=== PATIENT | female | born 1985 | race Caucasian/White ===

== ENCOUNTER → 2024-02-19 11:10 | Outpatient (REF) | payer BC, SELFPAY | LOC: RAD 11:10 | PROVIDERS: ATTENDING PHYSICIAN Internal Medicine Rheumatology; FAMILY PHYSICIAN Family Medicine | DX: M06.049 Rheumatoid arthritis without rheumatoid factor, unspecified hand (principal); M54.2 Cervicalgia | CPT/HCPCS: 72052 ==

== ENCOUNTER 2024-04-09 06:58 | Emergency (ER) | payer BC, SELFPAY ==
[2024-04-09 07:00] VITALS: BP 140/91
--- NOTE | 2024-04-09 07:53 | ED.GENMED ---
History of Present Illness
General
Chief Complaint: Eye Problems
Source: patient
Time Seen by Provider: 04/09/24 07:33
Travel History
Have you had any contact with someone who has COVID-19?: No
Do you have any symptoms of coronavirus? Fever > 100 degrees, chills, cough, shortness of breath, sore throat, loss of taste or smell, muscle aches, or headache?: No
History of Present Illness
History of Present Illness:
38-year-old female presenting the emergency department for evaluation of left eye redness, drainage and discomfort which started 2 days ago which she thought was possible allergies, yesterday morning had a little bit of discharge so her primary care
recommended erythromycin ointment which patient already had at home but states this was a prescription but that if symptoms worsen that she should come to the ER to be further evaluated. This morning patient states her left eye was closed
shut due to the discharge and edema and had some more discomfort which prompted her to come to the emergency department. She does not wear glasses or contact lenses, denies any chemical exposures, recent illnesses, fevers or infectious symptoms.
No other concerns.
Past History
Past History
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 Had hip and knee surgeries complete at [facility]) and Tonsilectomy
Social History
Tobacco: Non-smoker
Alcohol: Occasional
Drug: None
Personal:
Living: with family
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
Family History
Family History: CAD
Review of Systems
Review of Systems
All Other Systems: ROS reviewed and negative except as documented in HPI and ROS
Phy Exam
Physical Exam
Physical Exam:
GENERAL: Alert , in no apparent distress
EYE: Left eye: Conjunctive a moderately injected with discharge surrounding the upper and lower lids. There is no periorbital edema or erythema. No proptosis. Extraocular movements intact. Right eye is within normal limits
Fluorescein stain: Left eye no uptake
Visual acuity: Left eye: 20/25, right eye 20/25, both eyes: 20/25
Head: Normocephalic atraumatic
NECK: Supple,
ENT: mmm.
LUNGS: no acute respiratory distress
NEUROLOGICAL: Alert and oriented
SKIN: Warm and dry, skin intact.
MUSCULOSKELETAL: well perfused.
PSYCH: Normal and appropriate interaction.
Scores
Heart Failure Risk
Heart Failure Risk Score: Not Applicable
Heart Score for Chest Pain Patients
STEMI patient?: Not applicable
Withdrawal Assessment of Alcohol
Withdrawal Assessment Completed?: Not applicable
Course
Orders/Labs/Results
Orders:
Orders
04/09/24 07:55
Tetracaine HCl [Tetracaine 0.5% Ophthalmic Solution] 1 drop .ROUTE .[facility]
Vital Signs
Initial and Last Documented VS:
Initial Vital Signs
Temp Pulse Resp BP Pulse Ox
98.3 F 66 16 140/91 100
04/09/24 07:00 04/09/24 07:00 04/09/24 07:00 04/09/24 07:00 04/09/24 07:00
Last Documented Vital Signs
Temp Pulse Resp BP Pulse Ox
98.3 F 66 16 140/91 100
04/09/24 07:00 04/09/24 07:00 04/09/24 07:00 04/09/24 07:00 04/09/24 07:00
MDM/Problems Addressed
Differential Diagnosis Includes:
Conjunctivitis, corneal abrasion, foreign body, no concern for glaucoma
MDM/Problems Addressed:
38-year-old female presenting emergency department for evaluation of 2 days of left eye irritation, erythema and discharge. Exam seems to be most consistent with a conjunctivitis. I do suspect viral conjunctivitis to be most likely however given
discharge will treat with drops. Advise close follow-up with primary care provider. Aware of return precautions but otherwise stable for her at home.
*Pulse Oximetry
Patient hypoxic: no
*Critical Care Note
Total Time (30-74mins, 75-104mins- exclusive of procedures): Not Applicable
ED Attending Note
-
Portions of this chart may have been created with voice recognition software.� Occasional wrong word or��sound alike� substitutions may have occurred due to the inherent limitations of voice recognition software.
Discharge Plan
Departure
Patient Disposition: Home (Routine Discharge)
Date of Disposition: 04/09/24
Time of Disposition: 07:53
Patient with high blood pressure during this ER visit?: Yes
Discharge Problem:
Acute conjunctivitis, left eye
Instructions: Conjunctivitis (Pinkeye) (DC)
Prescriptions:
New
moxifloxacin [Vigamox] 0.5 % drops
1 drp ophthalmic (eye) TID 5 Days Qty: 3 0RF
No Action
PNV cmb#95-ferrous fumarate-FA [ Multivitamins] 1 EACH tablet
1 ea PO DAILY
Entyvio: Addvantage Bag
300 mg INFUSION .[id number]
Patient Comments:
infusion q 4 weeks
Saccharomyces boulardii [Florastor] 250 MG capsule
250 mg PO DAILY
pantoprazole 40 MG tablet,delayed release (DR/EC)
40 mg PO DAILY
Referrals:
Doc Montgomery DO [Family Provider] -
Interventions
Interventions:
*ED COVID-19 Vaccine History Last Done: 04/09/24 07:00
Discharge Date and Time
Print Language: BURKINAN
== END 2024-04-09 08:10 | disposition home or self-care (01) ==
LOC: EMR 06:58
PROVIDERS: EMERGENCY PHYSICIAN Emergency Medicine; FAMILY PHYSICIAN Family Medicine
DX: H10.32 Unspecified acute conjunctivitis, left eye (principal); K51.90 Ulcerative colitis, unspecified, without complications; Z88.6 Allergy status to analgesic agent
CPT/HCPCS: 99283

== ENCOUNTER → 2024-05-10 18:32 | Outpatient (REF) | payer BC, SELFPAY | LOC: RAD 18:32 | PROVIDERS: ATTENDING PHYSICIAN Family Medicine | DX: M54.50 Low back pain, unspecified (principal) | CPT/HCPCS: 72100; 73502 ==

== ENCOUNTER 2024-09-04 06:26 | Day surgery (SDC) | payer BC, SELFPAY | END 2024-09-04 10:14 | disposition home or self-care (01) | LOC: GI 06:26 | PROVIDERS: ATTENDING PHYSICIAN Internal Medicine; FAMILY PHYSICIAN Family Medicine | DX: Z12.11 Encounter for screening for malignant neoplasm of colon (principal); K51.00 Ulcerative (chronic) pancolitis without complications; K63.5 Polyp of colon | CPT/HCPCS: 45380; 88305 ==

== ENCOUNTER 2024-11-18 14:19 | Emergency (ER) | payer BC, SELFPAY ==
[2024-11-18 14:19] VITALS: BMI 27.8
[2024-11-18 14:22] VITALS: BP 144/82
[2024-11-18 14:51] LABS: % Basophils 0.6 % (0-2); % Eosinophils 0.6 % (0-6); % Immature Granulocytes 0.2 % (0-0.5); % Monocytes 8.6 % (1.7-9.3); Absolute Lymphocytes 0.3 10^3/uL (1.2-3.4); Absolute Monocytes 0.4 10^3/uL (0.1-0.6); Absolute Neutrophils 4.1 10^3/uL (1.4-6.5); Hematocrit 38.5 % (37.0-47.0); Hemoglobin 12.8 g/dL (12.0-16.0); Mean Corp Hgb Conc. 33.2 g/dL (33.0-37.0); Mean Corpuscular Hgb 29.9 pg (27.0-31.0); Mean Platelet Volume 9.9 fL (7.4-10.4); Nucleated Red Blood Cells % 0 %; Platelet Count 155 10^3/uL (130-400); Red Blood Cell Count 4.28 10^6/uL (4.20-5.40); White Blood Cell Count 4.9 10^3/uL (4.8-10.8)
[2024-11-18 15:05] LABS: ALT (SGPT) 27 U/L (0-35); AST (SGOT) 29 U/L (14-36); Albumin 4.3 g/dl (3.5-5.0); Alkaline Phosphatase 79 U/L (38-126); Blood Urea Nitrogen 8 mg/dl (7-17); Calcium 8.6 mg/dl (8.4-10.2); Carbon Dioxide 26 mmol/L (22-30); Chloride 97 mmol/L (98-107); Glucose 97 mg/dl (70-99); Potassium 3.9 mmol/L (3.5-5.1); Sodium 133 mmol/L (135-145); Total Bilirubin 0.3 mg/dl (0.2-1.3); Total Protein 6.7 g/dl (6.3-8.2); eGFR > 60.00
[2024-11-18 15:16] LABS: Troponin I < 0.012 ng/ml
[2024-11-18 15:57] VITALS: BP 114/74
[2024-11-18 16:00] VITALS: BP 112/73
--- NOTE | 2024-11-18 16:28 | ED.GENMED ---
History of Present Illness
General
Chief Complaint: Breathing Problem
Source: patient
Exam Limitations: none
Time Seen by Provider: 11/18/24 15:40
Nursing documentation reviewed up to this point in time: agreed with
History of Present Illness
History of Present Illness:
39-year-old female presenting to the emergency department today with concerns of cough congestion over the past 7 days. Initially had some mild upper respiratory symptoms over the past but over the past 24 hours or so has noticed fever some
shortness of breath and chest achiness. She is concerned potential pneumonia. She does have a history of ulcerative colitis does take immunosuppressive medication.
Past History
Past History
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 Had hip and knee surgeries complete at [facility]) and Tonsilectomy
Social History
Tobacco: Non-smoker
Alcohol: Occasional
Drug: None
Personal:
Living: with family
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
Family History
Family History: CAD
Review of Systems
Review of Systems
Allergies reviewed?: Yes
All Other Systems: ROS reviewed and negative except as documented in HPI and ROS
Phy Exam
Physical Exam
Physical Exam:
GENERAL: Alert , in no apparent distress
EYE: pupils equal and reactive
NECK: Supple, no significant adenopathy.
ENT: o/p clr, mmm.
CARDIAC: Regular rate and rhythm .
LUNGS: Rhonchi to the right lower lung. Otherwise clear lungs
ABDOMEN: Soft, without focal tenderness, no r/g, no cvat
NEUROLOGICAL: Alert and oriented, no focal neuro deficits
SKIN: Warm and dry, skin intact.
MUSCULOSKELETAL: No edema, well perfused.
PSYCH: Normal and appropriate interaction.
Course
Orders/Labs/Results
Orders:
Orders
11/18/24 14:26
Electrocardiogram (*1) Urgent
Reason for Study: Other
Other Reason for Exam: Respiratory Distress
EKG- Treatment ONCE
CR Chest - 2 Views Urgent
Comment:
Reason For Exam: respiratory distress
11/18/24 14:44
Complete Blood Count/With Diff Urgent
Comprehensive Metabolic Panel Urgent
Troponin I Urgent
11/18/24 17:33
Amoxicillin [Amoxil] 1,000 mg PO NOW STA
Azithromycin [Zithromax] 500 mg PO NOW STA
Abnormal Lab Results
11/18/24
14:44
Absolute Lymphs (auto) 0.3 L 10^3/uL
(1.2-3.4)
Neutrophils % 83.0 H %
(42.2-75.2)
Lymphocytes % 7.0 L %
(20.5-51.1)
Sodium 133 L mmol/L
(135-145)
Chloride 97 L mmol/L
(98-107)
11/18/24 14:44
11/18/24 14:44
Vital Signs
Initial and Last Documented VS:
Initial Vital Signs
Temp Pulse Resp BP Pulse Ox
99.1 F 90 16 144/82 100
11/18/24 14:22 11/18/24 14:22 11/18/24 14:22 11/18/24 14:22 11/18/24 14:22
Last Documented Vital Signs
Temp Pulse Resp BP Pulse Ox
99.8 F 83 17 144/82 99
11/18/24 15:58 11/18/24 15:58 11/18/24 15:58 11/18/24 14:22 11/18/24 15:58
MDM/Problems Addressed
MDM/Problems Addressed:
39-year-old female presenting to the emergency department today with concerns of initial upper respiratory symptoms over the past week but over the past 24 hours shortness of breath and chest pain with potential fever. Does not history of
immunosuppression due to medications for ulcerative colitis. Patient does have rhonchi to the right lower lung field. X-ray did not show any obvious pneumonias. It is possible patient has a very early pneumonia considering the lung findings.
Risk and benefit of starting antibiotic in the setting was discussed with the patient. She claims that considering she is immunosuppressed and has a fever at day 7 of a URI the possibility of a developing pneumonia is increasingly concerning.
Considering this we started antibiotics with recommendations for close outpatient follow-up return precautions were given.
*Critical Care Note
Total Time (30-74mins, 75-104mins- exclusive of procedures): Not Applicable
ED Attending Note
-
Portions of this chart may have been created with voice recognition software.� Occasional wrong word or��sound alike� substitutions may have occurred due to the inherent limitations of voice recognition software.
Discharge Plan
Departure
Patient Disposition: Home (Routine Discharge)
Date of Disposition: 11/18/24
Time of Disposition: 17:36
Patient with high blood pressure during this ER visit?: No
Condition: Good
Covid-19: Not Applicable
Discharge Problem:
Pneumonia
Instructions: Pneumonia in adults
Prescriptions:
New
amoxicillin 500 mg tablet
1,000 mg PO TID 7 Days Qty: 42 0RF
azithromycin 500 mg tablet
500 mg PO DAILY 2 Days Qty: 2 0RF
No Action
PNV cmb#95-ferrous fumarate-FA [ Multivitamins] 1 EACH tablet
1 ea PO DAILY
Entyvio: Addvantage Bag
300 mg INFUSION .[id number]
Patient Comments:
infusion q 4 weeks
Saccharomyces boulardii [Florastor] 250 MG capsule
250 mg PO DAILY
pantoprazole 40 MG tablet,delayed release (/EC)
40 mg PO DAILY
moxifloxacin [Vigamox] 0.5 % drops
1 drp ophthalmic (eye) TID 5 Days Qty: 3 0RF
Referrals:
Doc Montgomery DO [Family Provider] -
Activity Restrictions/Additional Instructions:
You came to the emergency department today with concerns of worsening cough fever chest discomfort. You may have a developing pneumonia. Please take the prescribed antibiotics and follow-up close with the primary care doctor within 1 week for
reassessment. Return for any worsening, new or concerning symptoms.
Interventions
Interventions:
*Risk Screen - Suicide Last Done: 11/18/24 14:22
*General Assessment Last Done: 11/18/24 14:22
*Neglect/Abuse Screening Last Done: 11/18/24 14:22
*ED COVID-19 Vaccine History Last Done: 11/18/24 15:59
ED- Cardiac Assessment Last Done: 11/18/24 15:59
ED- Pulmonary Assessment Last Done: 11/18/24 15:59
Discharge Date and Time
Print Language: TUVALUAN
[2024-11-18 17:00] VITALS: BP 108/66
[2024-11-18] MEDS: ZITHROMAX 500 MG PO (18:10)
[2024-11-18] MEDS: AMOXIL 1000 MG PO (18:10)
[2024-11-18] MEDS: TYLENOL 1000 MG PO (18:21)
== END 2024-11-18 18:35 | disposition home or self-care (01) ==
LOC: EMR 14:19
PROVIDERS: Emergency Medicine; EMERGENCY PHYSICIAN Emergency Medicine; FAMILY PHYSICIAN Family Medicine
DX: J18.9 Pneumonia, unspecified organism (principal); K51.90 Ulcerative colitis, unspecified, without complications; Z82.49 Family history of ischemic heart disease and other diseases of the circulatory system; Z90.710 Acquired absence of both cervix and uterus
CPT/HCPCS: 99283; 71046; 80053; 84484; 85025; 93005

== ENCOUNTER → 2025-01-25 13:29 | Outpatient (REF) | payer BC, SELFPAY | LOC: HWRAD 13:29 | PROVIDERS: ATTENDING PHYSICIAN Family Medicine | DX: M85.80 Other specified disorders of bone density and structure, unspecified site (principal) | CPT/HCPCS: 77080 ==

== ENCOUNTER 2025-10-05 14:13 | Emergency (ER) | payer BC, SELFPAY ==
[2025-10-05 14:17] VITALS: BP 158/87
[2025-10-05 14:39] LABS: Hematocrit 38.5 % (37.0-47.0); Hemoglobin 13.0 g/dL (12.0-16.0); Mean Corp Hgb Conc. 33.8 g/dL (33.0-37.0); Mean Corpuscular Volume 89.5 fL (81.0-99.0); Nucleated Red Blood Cells % 0 %; Platelet Count 208 10^3/uL (130-400); Red Cell Dist. Width 11.9 % (11.5-14.5)
[2025-10-05 14:53] LABS: ALT (SGPT) 17 U/L (0-35); AST (SGOT) 19 U/L (14-36); Albumin 4.6 g/dl (3.5-5.0); Alkaline Phosphatase 60 U/L (38-126); Blood Urea Nitrogen 13 mg/dl (7-17); Calcium 9.3 mg/dl (8.4-10.2); Carbon Dioxide 26 mmol/L (22-30); Chloride 101 mmol/L (98-107); Glucose 84 mg/dl (70-99); Lipase 106 U/L (23-300); Potassium 3.7 mmol/L (3.5-5.1); Sodium 133 mmol/L (135-145); Total Protein 7.2 g/dl (6.3-8.2); eGFR > 60.00
[2025-10-05 16:08] VITALS: BMI 23.3
[2025-10-05] MEDS: OMNIPAQUE 50 ML PO (16:26)
--- NOTE | 2025-10-05 16:56 | ED.GENMED ---
History of Present Illness
General
Chief Complaint: Abdominal Pain
Source: patient
Exam Limitations: none
Time Seen by Provider: 10/05/25 16:00
Nursing documentation reviewed up to this point in time: agreed with
History of Present Illness
History of Present Illness:
Patient with history of ulcerative colitis, maintained on Entyvio, presents to ED secondary to 2-day history of worsening abdominal pain with 'small lump' in her abdomen. Denies fever or chills. Denies vomiting, although with intermittent nausea
sensation. Denies loss of appetite. However, patient does state that her abdominal pain appears to be worse with meals. Denies change in bowel habits. Denies trauma. Denies recent illness. Denies recent change in medications or diet. Denies
previous history of similar symptoms. Denies recent change in activities.
Past History
Past History
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 Had hip and knee surgeries complete at [facility]) and Tonsilectomy
Social History
Tobacco: Non-smoker
Alcohol: Occasional
Drug: None
Personal:
Living: with family
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
Family History
Family History: CAD
Review of Systems
Review of Systems
Allergies reviewed?: Yes
All Other Systems: ROS reviewed and negative except as documented in HPI and ROS
Constitutional: Reports no symptoms; Denies fever
Respiratory: Reports no symptoms
Cardiac: Reports no symptoms
ABD/GI: Reports abdominal pain and nausea; Denies vomiting or diarrhea
Musculoskeletal: Reports no symptoms
Skin: Reports no symptoms
Neurological: Reports no symptoms
Phy Exam
Physical Exam
Physical Exam:
Physical Exam
General: mild distress, not acutely ill. afebrile
Head: nc/at. eomi
Neck: supple. normal range of motion.
Heart: s1/s2 regular rate and rhythm
Lungs: no acute respiratory distress. clear bilaterally
Abdomen: normal bowel sounds. no distention. mild mobile, 1mm diameter node noted lateral to midline along midabdomen, without evidence of hernia/erythema/ecchymosis/swelling
Neuro: alert and oriented x 3. no focal neurological deficits
Skin: no rash
Psychiatric: well kept. interactive and cooperative
Extremities: no edema. no calf tenderness.
Course
Orders/Labs/Results
Orders:
Orders
10/05/25 14:28
Complete Blood Count/With Diff Urgent
Comprehensive Metabolic Panel Urgent
Lipase Urgent
10/05/25 16:21
CT Abd/pel W Iv And Oral Contr Urgent
Comment:
Reason For Exam: lower abd pain w hx UC
Iohexol [Omnipaque] See Protocol PO NOW STA
10/05/25 20:28
US Pelvis W Transvag Combined Urgent
Comment:
Reason For Exam: lower abd pain
10/05/25 20:29
0.9% Sodium Chloride 500 ml [Nss] 500 ml IV BOLUS
Abnormal Lab Results
10/05/25
14:28
Absolute Monos (auto) 0.8 H 10^3/uL
(0.1-0.6)
Sodium 133 L mmol/L
(135-145)
10/05/25 14:28
10/05/25 14:28
Vital Signs
Initial and Last Documented VS:
Initial Vital Signs
Temp Pulse Resp BP Pulse Ox
98.3 F 64 20 158/87 100
10/05/25 14:17 10/05/25 14:17 10/05/25 14:17 10/05/25 14:17 10/05/25 14:17
Last Documented Vital Signs
Temp Pulse Resp BP Pulse Ox
98.3 F 62 16 109/72 100
10/05/25 14:17 10/05/25 20:27 10/05/25 20:27 10/05/25 20:27 10/05/25 20:27
MDM/Problems Addressed
MDM/Problems Addressed:
CT abdomen pelvis report reviewed and discussed with patient. Pelvic ultrasound ordered for tender catheterization along with evaluation for potential ovarian torsion.
Pelvic ultrasound report reviewed and discussed with patient. Patient will be discharged home in stable condition, with recommendation to follow-up with her primary [facility] physician for reevaluation.
*Pulse Oximetry
SaO2: 100
Oxygen Mode of Delivery: Room air
Patient hypoxic: no
*Critical Care Note
Total Time (30-74mins, 75-104mins- exclusive of procedures): Not Applicable
ED Attending Note
-
Portions of this chart may have been created with voice recognition software.� Occasional wrong word or��sound alike� substitutions may have occurred due to the inherent limitations of voice recognition software.
Discharge Plan
Departure
Patient Disposition: Home (Routine Discharge)
Date of Disposition: 10/05/25
Time of Disposition: 22:36
Patient with high blood pressure during this ER visit?: Yes
Condition: Good
Discharge Problem:
Ovarian cyst
Instructions: Ovarian Cyst (DC)
Prescriptions:
No Action
PNV no.95-ferrous fumarate-FA [ Multivitamins] 1 EACH tablet
1 ea PO DAILY
Entyvio: Addvantage Bag
300 mg INFUSION .[id number]
Patient Comments:
infusion q 4 weeks
Saccharomyces boulardii [Florastor] 250 MG capsule
250 mg PO DAILY
pantoprazole 40 MG tablet,delayed release (DR/EC)
40 mg PO DAILY
moxifloxacin [Vigamox] 0.5 % drops
1 drp ophthalmic (eye) TID 5 Days Qty: 3 0RF
amoxicillin 500 mg tablet
1,000 mg PO TID 7 Days Qty: 42 0RF
azithromycin 500 mg tablet
500 mg PO DAILY 2 Days Qty: 2 0RF
Referrals:
Olivia Fields MD [Active, Gynecology]
Nidhi Domínguez MD [Family Provider, Family Practice]
Activity Restrictions/Additional Instructions:
As discussed, please follow-up with your salvage worker for further evaluation and treatment.
Interventions
Interventions:
*Risk Screen - Suicide Last Done: 10/05/25 14:17
*General Assessment Last Done: 10/05/25 14:17
*Neglect/Abuse Screening Last Done: 10/05/25 14:17
*ED- Fall Risk Assessment Last Done: 10/05/25 16:08
*ED COVID-19 Vaccine History Last Done: 10/05/25 16:08
*ED Influenza Vaccine History Last Done: 10/05/25 16:08
*Nursing Disposition Last Done: 10/05/25 22:47
CO-Etzcke-Ciqgmbnuxk Assessment Last Done: 10/05/25 16:08
Discharge Date and Time
Discharge Date/Time: 10/05/25 22:47
Print Language: PARAGUAYAN
--- NOTE | 2025-10-05 19:00 | EDRN ---
Report received, introduced myself to patient, she needed to use restroom and aware waiting on CT
[2025-10-05 20:27] VITALS: BP 109/72
[2025-10-05] MEDS: NSS 500 IV (20:33)
--- NOTE | 2025-10-05 20:36 | EDRN ---
Dr. English at bedside updating patient on CT results and plan for ultrasound, call newman in reach aware to call when she feels full.
== END 2025-10-05 22:47 | disposition home or self-care (01) ==
LOC: EMR 14:13
PROVIDERS: Emergency Medicine; EMERGENCY PHYSICIAN Emergency Medicine; FAMILY PHYSICIAN Family Medicine
DX: N83.201 Unspecified ovarian cyst, right side (principal); R10.9 Unspecified abdominal pain; K51.90 Ulcerative colitis, unspecified, without complications; M87.9 Osteonecrosis, unspecified
CPT/HCPCS: 99284; 96360; 74177; 76830; 76856; 80053; 83690; 85025; Q9967

== ENCOUNTER → 2025-10-12 20:03 | Outpatient (REF) | payer BC, SELFPAY | LOC: MRI 20:03 | PROVIDERS: ATTENDING PHYSICIAN Family Medicine | DX: N83.201 Unspecified ovarian cyst, right side (principal); N83.8 Other noninflammatory disorders of ovary, fallopian tube and broad ligament | CPT/HCPCS: 72197; A9575 ==